=== PATIENT | male | born 1940 | race Hispanic/Latino ===

== ENCOUNTER 2018-04-12 06:42 | Day surgery (SDC) | payer MEDICARE ==
[2018-04-12] MEDS ORDERED: WATER FOR IRRIG STERILE IR ONE (07:41)
[2018-04-12] MEDS ORDERED: NACL 0.9% 1000 ML 1,000 ML IV SCH (08:00)
[2018-04-12] MEDS ORDERED: XYLOCAINE MPF 2% ONE (08:30)
--- NOTE | 2018-04-12 09:02 | Anesthesia Day of Surgery ---
Anesthesia Day of Surgery - Day of Surgery Patient Examined: Yes Patient H&P Reviewed: Yes Patient is NPO: Yes
--- NOTE | 2018-04-12 09:02 | Anesthesia Consultation ---
Anesthesia Consult and Med Hx Date of service: 04/12/18 - Airway Anesthetic Teeth Evaluation: Poor (some missing teeth) ROM Head & Neck: Adequate Mental/Hyoid Distance: Adequate Mallampati Class: Class III Intubation Access Assessment: Possibly Difficult - Pre-Operative Health Status ASA Pre-Surgery Classification: ASA3 Proposed Anesthetic Plan: MAC - Pulmonary Hx Smoking: Yes (1/2 PPD OVER 40YRS) Hx Sleep Apnea: Yes (UVELOPLASTY RESOLVED PROBLEM) - Cardiovascular System Hx Hypertension: Yes - Endocrine Hx Hypothyroidism: Yes
[2018-04-12] MEDS ORDERED: DIPRIVAN 10 MG/ML IV ONE (09:04)
--- NOTE | 2018-04-12 09:33 | Procedure Note ---
Date of procedure: 04/12/18 Pre-op diagnosis: Abdominal Pain Post-op diagnosis: other (Moderate, Distal Erosive Esophagitis/ Gastritis/ Gastric Erosion/ duodenitis) Anesthesia: MAC Surgeon: MICHAELA VALENZUELA Estimated blood loss: minimal Pathology: list Specimen disposition: to lab Condition: stable Disposition: same day (Avoid aspirin and aspirin related products for 4 days. Advice patient to avoid smoking and follow up on 1 to 2 weeks ([phone]).)
--- NOTE | 2018-04-12 09:50 | Operative Report ---
INDICATIONS: The patient is a 78-year-old white male with an underlying history of smoking, prior history of duodenal ulcer, who denies any recent history of alcohol use. having some abdominal pain because of his history of duodenal ulcer and possible recurrence. EGD was done to make sure that was not the case. DESCRIPTION OF PROCEDURE: The procedure was done after getting informed consent with MAC anesthesia. Instrument was passed through the hypopharynx into the esophagus, which showed some moderate distal erosive esophagitis. Biopsy was done from the distal esophagus. Stomach showed gastritis, but no ulcers either in the straight on the retroverted view. The pylorus was patent. The biopsy was done from the gastric antrum, the gastric body and the angular incisure. The duodenum and bulb showed evidence of duodenitis. The patient had a prominent papilla, but no other pathology and there was no duodenal ulcer noted. Biopsy was done from the gastric antrum, gastric body and angular incisure to rule out for H. pylori and atrophic gastritis as well as from the distal esophagus to assess for the severity of the erosive esophagitis. There was minimal bleeding from the biopsy sites. No complications associated with the procedure. ASSESSMENT: Abdominal pain, prior history of duodenal ulcer. No duodenal ulcer at present. Duodenitis, gastritis, moderate distal erosive esophagitis. PLAN: To treat the patient with PPI. Encouraged the patient to refrain from smoking and have the patient avoid aspirin, aspirin-related products and anticoagulants for the next few days and follow up in the office in 1-2 weeks' time. JOB# [id number] GARTH/JOEY
[2018-04-12 09:58] VITALS: BP 113/57
--- NOTE | 2018-04-12 10:08 | Post Anesthesia Evaluation ---
- Post Anesthesia Evaluation Patient Participated: Yes Airway Patent: Yes Stable Respiratory Function: Yes Nausea/Vomiting: No Temp > 96.8F: Yes Pain Manageable: Yes Adequeate Hydration: Yes Anesthesia Complications: No
--- NOTE | 2018-04-12 10:50 | Operative Report ---
PROCEDURE: EGD. INDICATIONS: This is a 78-year-old white male who has a history of smoking, prior history of duodenal ulcer. Lately, he has been having recurrence of abdominal pain and EGD was done to make sure that there was not any recurrence of any duodenal ulcer. EGD was done with MAC anesthesia after getting informed consent from the patient, her nurse, had GI lab was in the room during the whole time that I did the procedure. DESCRIPTION OF PROCEDURE: The procedure was done with MAC anesthesia. Instrument was passed through the hypopharynx into the esophagus, which showed moderate distal erosive esophagitis. Stomach showed antral erosion and gastritis, but no ulcers were noted in the straight or the retroverted view. The pylorus was patent. The duodenum in the first and second portion appeared normal. Biopsy was done from the gastric antrum and incisura and gastric body to rule out for H. pylori. Additional biopsy was done from the distal esophagus to assess for the severity of the erosive esophagitis. There was minimal bleeding from the biopsy sites. No complications associated with the procedure. ASSESSMENT: Abdominal pain, prior history of duodenal ulcer, none now; duodenitis, moderate distal erosive esophagitis, gastritis. Again, there was minimal bleeding from the biopsy sites. No complications associated with the procedure. Plan is treat the patient with PPI. Encouraged the patient strongly to refrain from smoking. I will have the patient follow up in the office in 1-2 weeks' time and again nurse, ____ was in the room during the whole time that the procedure was being done. JOB# [id number] GARTH/JOEY
--- NOTE | 2018-04-12 11:41 | Consultation ---
HISTORY OF PRESENT ILLNESS: This is a 78-year-old white male with an underlying history of smoking. He denies any recent history of alcohol use. Colonoscopy was done 2 years ago, which had shown presence of extensive diverticular disease and hyperplastic polyps. EGD done previously had shown presence of two duodenal ulcers as well as presence of erosive esophagitis and gastritis. Lately, he has been having some mid abdominal pain. He continues to smoke and may have recurrence of his duodenal ulcer. He has been advised to have an EGD done and empirically asked to take [id number] omeprazole. ALLERGIES: He has no known allergies. SOCIAL HISTORY: Admits to smoking. No alcohol use. No cardiac issues. He has had his flu shots. PHYSICAL EXAMINATION: VITAL SIGNS: His blood pressure is 121/64, pulse is 61, height is 5 feet 5 inches, weight 157 pounds. He is afebrile. HEENT: Shows no JVD. LUNGS: Clear to auscultation with some reduced breath sounds. CARDIOVASCULAR: Grossly normal. ABDOMEN: Soft with some mid abdominal tenderness. EXTREMITIES: No pedal edema. NEUROLOGIC: He is alert and oriented. IMPRESSION: Abdominal pain, history of duodenal ulcer with possible recurrence of the duodenal ulcer, hiatal hernia, erosive esophagitis, diverticular disease. PLAN: To do EGD at [facility] on 04/12/2018. JOB# [id number] GARTH/JOEY
== END 2018-04-12 10:05 | disposition home or self-care (01) ==
LOC: GIO 06:42
DX: K29.70 Gastritis, unspecified, without bleeding (principal); K22.10 Ulcer of esophagus without bleeding; K21.9 Gastro-esophageal reflux disease without esophagitis; I10 Essential (primary) hypertension; M19.90 Unspecified osteoarthritis, unspecified site; E03.9 Hypothyroidism, unspecified; E78.00 Pure hypercholesterolemia, unspecified; Z87.891 Personal history of nicotine dependence; Z87.11 Personal history of peptic ulcer disease
CPT/HCPCS: 43239; 88305; 88342; J2704; J7030

== ENCOUNTER 2018-11-13 10:56 | Outpatient (CLI) | payer MEDICARE ==
--- NOTE | 2018-11-13 12:25 | XRay Report ---
XRAY RIGHT RIBS 2 VIEWS: 11/13/18 10:56:00 CLINICAL: Right-sided rib pain. FINDINGS: No rib fracture or rib lesion. The lungs are normally expanded. No pneumothorax. Normal heart and pulmonary vasculature. Degenerative change in the spine. IMPRESSION: Negative with no rib fracture.
== END 2018-11-13 10:57 | disposition home or self-care (01) ==
LOC: SPVIMAG 10:56
PROVIDERS: ATTEND Internal Medicine
DX: R07.81 Pleurodynia (principal); M47.814 Spondylosis without myelopathy or radiculopathy, thoracic region; E78.00 Pure hypercholesterolemia, unspecified; I10 Essential (primary) hypertension; K21.9 Gastro-esophageal reflux disease without esophagitis; E03.9 Hypothyroidism, unspecified; Z87.891 Personal history of nicotine dependence